=== PATIENT | male | born 1990 | race Caucasian/White ===

== ENCOUNTER 2017-12-17 17:39 | Emergency (ER) | payer MEDICAID ==
[~2017-12-17] VITALS: Ht 175.3 cm; Wt 68.0 kg
[2017-12-17 18:10] VITALS: BP_SYST 119
[2017-12-17] MEDS ORDERED: HYDROcodone/ACETAMIN 5-325 MG TAB (NORCO/ VICODIN) PO ONE (20:00)
[2017-12-17 20:15] VITALS: BP_SYST 121
== END 2017-12-17 20:15 | disposition home or self-care (01) ==
LOC: SED 17:39
DX: S43.004A Unspecified dislocation of right shoulder joint, initial encounter (principal); V00.131A Fall from skateboard, initial encounter; Y93.51 Activity, roller skating (inline) and skateboarding; Y92.89 Other specified places as the place of occurrence of the external cause; Y99.8 Other external cause status
CPT/HCPCS: 73030; 99284

== ENCOUNTER 2017-12-25 01:33 | Emergency (ER) | payer MEDICAID ==
[~2017-12-25] VITALS: Ht 177.8 cm; Wt 77.1 kg
[2017-12-25 01:45] VITALS: BP_SYST 127
[2017-12-25] MEDS ORDERED: HYDROcodone/ACETAMIN 5-325 MG TAB (NORCO/ VICODIN) PO ONE (02:30)
[2017-12-25 02:32] VITALS: BP_SYST 127
== END 2017-12-25 02:32 | disposition home or self-care (01) ==
LOC: SED 01:33
DX: S62.525A Nondisplaced fracture of distal phalanx of left thumb, initial encounter for closed fracture (principal); V00.131A Fall from skateboard, initial encounter; Y93.51 Activity, roller skating (inline) and skateboarding; Y92.89 Other specified places as the place of occurrence of the external cause; Y99.8 Other external cause status
CPT/HCPCS: 73140-TC; 99284

== ENCOUNTER 2018-01-10 17:54 | Emergency (ER) | payer MEDICAID ==
[~2018-01-10] VITALS: Ht 167.6 cm; Wt 80.3 kg
[2018-01-10 18:00] VITALS: BP_SYST 119
[2018-01-10] MEDS: KETOROLAC TROMETHAMINE 30 MG VIAL IM ONE ×2 (18:26→18:27)
[2018-01-10 19:34] VITALS: BP_SYST 119
== END 2018-01-10 19:34 | disposition home or self-care (01) ==
LOC: SED 17:54
DX: M25.511 Pain in right shoulder (principal); M79.645 Pain in left finger(s); R03.0 Elevated blood-pressure reading, without diagnosis of hypertension; F17.200 Nicotine dependence, unspecified, uncomplicated; V00.131A Fall from skateboard, initial encounter; Y93.51 Activity, roller skating (inline) and skateboarding; Y92.89 Other specified places as the place of occurrence of the external cause; Y99.8 Other external cause status
CPT/HCPCS: 29130; 73030; 73140; 96372; 99284; J1885

== ENCOUNTER 2018-06-25 15:50 | Emergency (ER) | payer MEDICAID, OTHER ==
[~2018-06-25] VITALS: Ht 177.8 cm; Wt 75.7 kg
[2018-06-25 15:54] VITALS: BP_SYST 136
== END 2018-06-25 16:55 | disposition left against medical advice (07) ==
LOC: SED 15:50
DX: R42 Dizziness and giddiness (principal); R51 Headache; Z53.21 Procedure and treatment not carried out due to patient leaving prior to being seen by health care provider

== ENCOUNTER 2018-07-20 19:26 | Emergency (ER) | payer MEDICAID ==
[~2018-07-20] VITALS: Ht 167.6 cm; Wt 59.0 kg
[2018-07-20 19:40] VITALS: BP_SYST 132
[2018-07-20 21:05] VITALS: BP_SYST 127
== END 2018-07-20 21:05 | disposition home or self-care (01) ==
LOC: SED 19:26
DX: T18.8XXA Foreign body in other parts of alimentary tract, initial encounter (principal); R03.0 Elevated blood-pressure reading, without diagnosis of hypertension; X58.XXXA Exposure to other specified factors, initial encounter; Y93.89 Activity, other specified; Y92.89 Other specified places as the place of occurrence of the external cause; Y99.8 Other external cause status
CPT/HCPCS: 74018; 99283

== ENCOUNTER 2018-07-26 19:37 | Emergency (ER) | payer MEDICAID ==
[~2018-07-26] VITALS: Ht 170.2 cm; Wt 68.0 kg
[2018-07-26 19:45] VITALS: BP_SYST 133
[2018-07-26 21:39] VITALS: BP_SYST 129
== END 2018-07-26 21:39 | disposition home or self-care (01) ==
LOC: SED 19:37
DX: Z76.0 Encounter for issue of repeat prescription (principal)
CPT/HCPCS: 99283

== ENCOUNTER 2018-07-28 13:32 | Emergency (ER) | payer MEDICAID ==
[~2018-07-28] VITALS: Ht 167.6 cm; Wt 68.0 kg
[2018-07-28 13:40] VITALS: BP_SYST 126
== END 2018-07-28 14:55 | disposition left against medical advice (07) ==
LOC: SED 13:32
DX: T18.8XXA Foreign body in other parts of alimentary tract, initial encounter (principal); R03.0 Elevated blood-pressure reading, without diagnosis of hypertension; F17.200 Nicotine dependence, unspecified, uncomplicated; X58.XXXA Exposure to other specified factors, initial encounter; Y93.89 Activity, other specified; Y92.89 Other specified places as the place of occurrence of the external cause; Y99.8 Other external cause status
CPT/HCPCS: 74150-TC; 99284

== ENCOUNTER 2022-06-24 20:07 | Emergency (ER) | payer MEDICAID ==
--- NOTE | 2022-06-24 20:15 | NUR ---
Multiple attempts made to locate patient for assesment in triage. Patient was not located and at this time patient is considered LWBS.
--- NOTE | 2022-06-24 21:00 | NUR ---
CALLED PT TO TRIAGE. NO FOUND IN WAITING ROOM.
== END 2022-06-24 21:00 | disposition left against medical advice (07) ==
LOC: SED 20:07
DX: R10.9 Unspecified abdominal pain (principal); Z53.21 Procedure and treatment not carried out due to patient leaving prior to being seen by health care provider

== ENCOUNTER 2022-07-28 07:17 | Emergency (ER) | payer MEDICAID ==
[~2022-07-28] VITALS: Ht 170.2 cm; Wt 65.8 kg
--- NOTE | 2022-07-28 07:30 | NUR ---
Placed in room 08 . Placed on block cleaner, blood pressure machine and pulse oximeter. To gown for exam. Side rails up. Report given to DARINEL.
--- NOTE | 2022-07-28 07:34 | NUR ---
ER DR. NATION EXAMINING PT
--- NOTE | 2022-07-28 08:07 | NUR ---
PT WAS NOT IN ROOM WHEN TECH CAME INTO ROOM FOR XRAY. PT WAS FOUND WALKING BACK INTO THE ER WITH A DIALYSIS NURSE IN HIS HAND. PT PACING IN ROOM, NOW WITH BUILDING DISMANTLER.
[2022-07-28] MEDS ORDERED: CIPR250T4 PO (08:45)
[2022-07-28] MEDS ORDERED: ALBMDI INH (08:45)
[2022-07-28] MEDS ORDERED: PRED20TA PO (08:45)
[2022-07-28] MEDS ORDERED: NALO4SPR NS (08:48)
--- NOTE | 2022-07-28 08:59 | NUR ---
MEDICATED ORDERED, WILL CONT TO MONITOR.
[2022-07-28] MEDS ORDERED: predniSONE 20 MG TABLET PO ONE (09:00)
[2022-07-28] MEDS ORDERED: CIPROFLOXACIN HCL 500 MG TABLET PO ONE (09:00)
--- NOTE | 2022-07-28 09:30 | NUR ---
Patient given written and verbal discharge instructions and verbalizes understanding. ER MD discussed with patient the results and treatment provided. Patient in stable condition. ID arm band removed. Rx of PREDNISONE, CIPRO, ALBUTEROL, NALOXONE given. Patient educated on pain management and to follow up with PMD. Pain Scale . Opportunity for questions provided and answered. Medication side effect fact sheet provided.
== END 2022-07-28 09:30 | disposition home or self-care (01) ==
LOC: SED 07:17
DX: J20.9 Acute bronchitis, unspecified (principal); F11.20 Opioid dependence, uncomplicated; K59.00 Constipation, unspecified; I10 Essential (primary) hypertension; Z87.19 Personal history of other diseases of the digestive system; Z79.899 Other long term (current) drug therapy
CPT/HCPCS: 99283; 71046; J7512

== ENCOUNTER 2022-08-05 01:30 | Emergency (ER) | payer MEDICAID ==
[~2022-08-05] VITALS: Ht 172.7 cm; Wt 65.8 kg
[~2022-08-05 01:30] MED LIST: ALBMDI INH; CIPR250T4 PO; NALO4SPR NS; PRED20TA PO
[2022-08-05 01:38] VITALS: BP_SYST 152
--- NOTE | 2022-08-05 01:49 | NUR ---
PLPatient to ER bed 08 to gown for evaluation. Side rails up. Report given to PATTIE AKBAR.
--- NOTE | 2022-08-05 01:50 | NUR ---
ER at bedside examining patient.
[2022-08-05] MEDS ORDERED: NACL 0.9% 1,000 ML IV ONE (02:00)
--- NOTE | 2022-08-05 02:14 | NUR ---
The pt is received in ED 8. AAo x4, RR even and unlabored. The pt c/o dyspnea. Coughing up blood and "white things". States "snorts fentanyl for the pain". Nos/sx of acute distress noted at this time.
[2022-08-05 02:23] LABS: BASOPHILS % (AUTO) 0.5 % (0.0-2.0); EOSINOPHILS % (AUTO) 0.1 % (0.0-4.0); HEMOGLOBIN 13.9 g/dL (14.0-18.0); LYMPHOCYTES # (AUTO) 1.9 K/uL (1.0-5.5); LYMPHOCYTES % (AUTO) 19.8 % (20.5-51.5); MEAN CORPUSCULAR HEMOGLOBIN 30 pg (27-31); MEAN CORPUSCULAR HGB CONC 34 % (32-36); MEAN CORPUSCULAR VOLUME 87 fL (79.0-98.0); MONOCYTES # (AUTO) 0.6 K/uL (0.0-1.0); MONOCYTES % (AUTO) 6.4 % (1.7-9.3); NEUTROPHILS # (AUTO) 6.9 K/uL (1.8-7.7); NEUTROPHILS % (AUTO) 73.2 % (40.0-70.0); PLATELET COUNT (AUTO) 219 K/uL (130-430); RED CELL DISTRIBUTION WIDTH 13.1 % (9.0-15.0); WHITE BLOOD COUNT (AUTO) 9.4 K/uL (4.8-10.8)
[2022-08-05 02:32] LABS: CALCIUM 9.5 mg/dL (8.4-11.0); CREATININE 0.81 mg/dL (0.55-1.30)
[2022-08-05 02:37] LABS: ALBUMIN 4.1 g/dL (3.4-4.8); TOTAL BILIRUBIN 0.3 mg/dL (0.0-1.0)
[2022-08-05 03:53] LABS: BILIRUBIN,URINE NEGATIVE (NEGATIVE); BLOOD, URINE NEGATIVE (NEGATIVE); CLARITY/URINE CLEAR (CLEAR); COLOR,URINE YELLOW (YELLOW); GLUCOSE,URINE NEGATIVE (NEGATIVE); KETONES,URINE NEGATIVE (NEGATIVE); LEUKOCYTE ESTERASE ,URINE NEGATIVE (NEGATIVE); NITRITE, URINE NEGATIVE (NEGATIVE); PROTEIN URINE NEGATIVE (NEGATIVE); UROBILINOGEN,URINE 0.2 (0.2-1.0)
[2022-08-05 04:11] LABS: BARBITURATE, URINE NEGATIVE (NEG <=200); BENZODIAZEPINE, URINE NEGATIVE (NEG <=150); CANNABINOID, URINE NEGATIVE (NEG <=50); COCAINE, URINE NEGATIVE (NEG <=150); METHAMPHETAMINES SCREEN,URINE POSITIVE (NEG <=500); OPIATE, URINE NEGATIVE (NEG <=100); PHENCYCLIDINE SCREEN,URINE NEGATIVE (NEG <=25); UR TRICYCLIC ANTIDEPRESSANTS NEGATIVE (NEG <=300); URINE AMPHETAMINE POSITIVE (NEG <=500); URINE METHADONE NEGATIVE (NEG <=200); URINE OXYCODONE SCREEN NEGATIVE (NEG <=100); URINE PROPOXYPHENE SCREEN NEGATIVE (NEG <=300)
[2022-08-05] MEDS ORDERED: ZIT250 PO (04:13)
[2022-08-05 04:40] VITALS: BP_SYST 108
--- NOTE | 2022-08-05 04:50 | NUR ---
Patient given written and verbal discharge instructions and verbalizes understanding. ER MD discussed with patient the results and treatment provided. Patient in stable condition. ID arm band removed. IV catheter removed intact and dressing applied, no active bleeding. Rx of azithromycin given. Patient educated on pain management and to follow up with PMD. Pain Scale 0. Opportunity for questions provided and answered.
== END 2022-08-05 04:40 | disposition home or self-care (01) ==
LOC: SED 01:30
DX: J18.9 Pneumonia, unspecified organism (principal); F15.10 Other stimulant abuse, uncomplicated; R07.9 Chest pain, unspecified; R09.1 Pleurisy; Z79.899 Other long term (current) drug therapy
CPT/HCPCS: 99284; 96360; 71045; 80307; 80053; 83690; 85025; 85379; 36415; 81003; J7030

== ENCOUNTER 2022-08-12 15:02 | Emergency (ER) | payer MEDICAID ==
[~2022-08-12] VITALS: Ht 167.6 cm; Wt 8.2 kg
[~2022-08-12 15:02] MED LIST changes: +ZIT250 PO
--- NOTE | 2022-08-12 15:10 | NUR ---
Pt brought by father, A&Ox4, pt presents to ER with blood in the urine, pt states he may have parasites for 2 months, pt VSS, skin pink and warm , cap refill <3, will cont to monitor.
[2022-08-12 15:19] VITALS: BP_SYST 112
[2022-08-12 17:10] LABS: BILIRUBIN,URINE NEGATIVE (NEGATIVE); BLOOD, URINE 3+ (NEGATIVE); CLARITY/URINE CLOUDY (CLEAR); COLOR,URINE BROWN (YELLOW); GLUCOSE,URINE NEGATIVE (NEGATIVE); KETONES,URINE TRACE (NEGATIVE); LEUKOCYTE ESTERASE ,URINE NEGATIVE (NEGATIVE); NITRITE, URINE NEGATIVE (NEGATIVE); PH,URINE 5.5 (5.0-8.0); PROTEIN URINE 2+ (NEGATIVE); UROBILINOGEN,URINE 0.2 (0.2-1.0)
[2022-08-12 17:25] LABS: BACTERIA,URINE RARE /HPF (None Seen); RBC,URINE >100 /HPF (0-3)
[2022-08-12 17:26] LABS: MUCUS,URINE 3+ /LPF (None Seen)
--- NOTE | 2022-08-12 18:30 | NUR ---
Per senior account clerk, pt LWBS.
== END 2022-08-12 18:30 | disposition left against medical advice (07) ==
LOC: EDBD → SED 15:02
DX: R31.9 Hematuria, unspecified (principal); Z53.21 Procedure and treatment not carried out due to patient leaving prior to being seen by health care provider
CPT/HCPCS: 81000; 87086; 99283

== ENCOUNTER 2022-09-08 03:28 | Emergency (ER) | payer MEDICAID ==
[~2022-09-08] VITALS: Ht 172.7 cm; Wt 77.1 kg
[2022-09-08 03:35] VITALS: BP_SYST 153
[2022-09-08 04:57] VITALS: BP_SYST 153
== END 2022-09-08 04:57 | disposition home or self-care (01) ==
LOC: SED 03:28
DX: R09.1 Pleurisy (principal); F15.10 Other stimulant abuse, uncomplicated; F17.200 Nicotine dependence, unspecified, uncomplicated; Z79.899 Other long term (current) drug therapy
CPT/HCPCS: 71045; 99283

== ENCOUNTER 2022-11-10 15:40 | Emergency (ER) | payer MEDICAID ==
[~2022-11-10] VITALS: Ht 175.3 cm; Wt 81.6 kg
--- NOTE | 2022-11-10 15:45 | NUR ---
Patient triaged and placed in waiting room. VSS and patient appears in no acute distress at this time. Accompanied by SELF, awaiting available bed, and MD notified of need for MSE.
[2022-11-10 15:47] VITALS: BP_SYST 128
--- NOTE | 2022-11-10 15:50 | NUR ---
PT STATES THAT HE HAS WORMS AND A PARASITE FROM [place] IN HIS LUNGS AND BLOOD. STATES HE GOT FULL WORK-UP LAST NIGHT AT [facility]. PT HAS RECENTLY BEEN RELEASED FROM ALF. PT STATES HE USES FENTANYL DAILY. POSSIBLY USED IN HOSPITAL RESTROOM. TRACK OMMIN NOTED. PT IS ANXIOUS, HYPERVERBAL, TWITCHY.
--- NOTE | 2022-11-10 15:50 | NUR ---
PT LOCKED HIMSELF IN TRIAGE BATHROOM, SECURITY CALLED HIM TO COME OUT AND PT HAD FRESH INJECTION SITE TO RIGHT AC.
--- NOTE | 2022-11-10 15:55 | NUR ---
DR WORLEY OUT TO TRIAGE ROOM FOR EVALUATION
--- NOTE | 2022-11-10 17:00 | NUR ---
PT LOCKED HIMSELF IN TRIAGE ROOM BATHROOM AND SECURITY NOTIFIED.
--- NOTE | 2022-11-10 17:11 | NUR ---
Patient given written and verbal discharge instructions and verbalizes understanding. ER MD discussed with patient the results and treatment provided. Patient in stable condition. ID arm band removed. Rx of NONE given. Patient educated on pain management and to follow up with PMD. Pain Scale 0/10. Opportunity for questions provided and answered. Medication side effect fact sheet provided.
== END 2022-11-10 17:11 | disposition home or self-care (01) ==
LOC: SED 15:40
DX: F15.10 Other stimulant abuse, uncomplicated (principal); Z79.899 Other long term (current) drug therapy
CPT/HCPCS: 99281